=== PATIENT | female | born 1950 | race Caucasian/White ===

== ENCOUNTER 2024-07-30 06:36 | Emergency (ER) | payer MEDICARE, OTHER, SELFPAY ==
[2024-07-30 06:37] VITALS: BP 147/74
--- NOTE | 2024-07-30 07:08 | ED.GENMED ---
History of Present Illness
General
Chief Complaint: Dizziness
Time Seen by Provider: 07/30/24 06:55
History of Present Illness
History of Present Illness:
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 Patient reports she woke up this morning and was in her usual state of health. While she was watching TV, started to feel dizzy and
off-balance. Dizziness is described as spinning sensation. Also notes a headache. Denies fall or trauma. Denies ever having the symptoms in the past. Denies weakness or numbness to her extremities. Denies fever or systemic symptoms. Denies
fever or systemic symptoms. Does report history of vertigo several years ago. Denies additional medical complaints
Past History
Past History
ED Past Medical History: Other (Scleroderma, crest syndrome, anemia, restrictive lung disease)
ED Past Surgical History: Appendectomy, and Gynecological
Social History
Tobacco: Non-smoker
Alcohol: None
Drug: None
Personal: Other
Living: with family
Employment: Other
Family History
Family History: Other
Phy Exam
Physical Exam
Physical Exam:
General: Well-appearing, no clinical signs of dehydration, nontoxic and in no acute distress
HEENT: protecting airway
Neck: appears supple
CV: Normal heart rate, regular rhythm, no evidence of cyanosis
Resp: No accessory muscle use, no increased work of breathing, lungs clear to auscultation bilaterally
Abd: Soft and non-distended, no tenderness to palpation
Extremities: No deformities, no swelling, no erythema, pulses and sensation intact
Neuro: alert, no focal neurologic deficit
: deferred
Rectal: deferred
Psych: Normal affect
Skin: Intact
Course
Orders/Labs/Results
Orders:
Orders
07/30/24 07:03
CT Head W/o Iv Contrast Urgent
Comment:
Reason For Exam: dizziness
0.9% Sodium Chloride 1000 ml [Nss] 1,000 ml IV BOLUS
Meclizine [Antivert] 25 mg PO NOW STA
07/30/24 07:05
Electrocardiogram (*1) Urgent
Reason for Study: Vertigo / Dizzy
EKG- Treatment ONCE
07/30/24 07:30
Complete Blood Count/With Diff Urgent
Comprehensive Metabolic Panel Urgent
07/30/24 08:25
Ketorolac [Toradol] 15 mg IV NOW STA
Abnormal Lab Results
07/30/24
07:30
Absolute Lymphs (auto) 0.6 L 10^3/uL
(1.2-3.4)
Immature Gran % 0.6 H %
(0-0.5)
Neutrophils % 77.8 H %
(42.2-75.2)
Lymphocytes % 11.9 L %
(20.5-51.1)
Glucose 108 H mg/dl
(70-99)
07/30/24 07:30
07/30/24 07:30
Vital Signs
Initial and Last Documented VS:
Initial Vital Signs
Temp Pulse Resp BP Pulse Ox
97.8 F 67 18 147/74 98
07/30/24 06:37 07/30/24 06:37 07/30/24 06:37 07/30/24 06:37 07/30/24 06:37
Last Documented Vital Signs
Temp Pulse Resp BP Pulse Ox
97.8 F 84 11 167/76 98
07/30/24 06:37 07/30/24 09:00 07/30/24 09:00 07/30/24 08:11 07/30/24 09:00
MDM/Problems Addressed
MDM/Problems Addressed:
73-year-old female with history of CREST syndrome presenting for dizziness, headache, feeling off balance. Vital signs on arrival are normal.
On exam, patient is well-appearing, no acute distress or discomfort. Benign cardiac and pulmonary exam. On neurologic exam, no focal neurologic deficits. Symptoms appear more consistent with BPPV. Patient does report symptoms are worse when she
leans forward and when she looks up and down. Given acute onset of symptoms and patient's age, will obtain CT brain imaging. Patient otherwise afebrile, nontoxic, lower suspicion for infectious pathology. Patient denies any chest pain. Will
screen with EKG. Will administer IV fluids in the setting of volume depletion/mild dehydration. Will check electrolyte panel to ensure no electrolyte derangements. Will continue to closely monitor
08:30 -patient's labs are unremarkable. CT brain without acute intracranial abnormality. Patient reports mild improvement of her headache, was able to walk to the bathroom. Will administer Toradol for residual headache
09:45- Patient reports she is feeling much better. At this time feel that she is stable for discharge, continue to suspect vertiginous component to symptoms. Will prescribe meclizine. Advised outpatient follow-up, and patient notes that she does
have an upcoming appointment with her doctor. Return precautions discussed and patient verbalized understanding
*Critical Care Note
Total Time (30-74mins, 75-104mins- exclusive of procedures): Not Applicable
ED Attending Note
-
Portions of this chart may have been created with voice recognition software.� Occasional wrong word or��sound alike� substitutions may have occurred due to the inherent limitations of voice recognition software.
Discharge Plan
Departure
Prescriptions:
No Action
pilocarpine HCl 5 MG tablet
5 mg PO DAILY
omeprazole 20 MG capsule,delayed release(DR/EC)
20 mg PO DAILY
aspirin 81 MG tablet,chewable
81 mg PO DAILY
hydroxychloroquine 200 MG tablet
200 mg PO DAILY
duloxetine 60 MG capsule,delayed release(DR/EC)
60 mg PO DAILY
amlodipine [Norvasc] 5 mg Tablet
5 mg PO DAILY
mycophenolate mofetil 500 mg tablet
1,000 mg PO BID
benzonatate 100 mg Capsule
100 mg PO TID PRN (Reason: Cough)
ferrous sulfate 325 mg (65 mg iron) Tablet
325 mg PO DAILY
folic acid 1 mg Tablet
1 mg PO DAILY
pravastatin 20 mg Tablet
20 mg PO DAILY
cholecalciferol (vitamin D3) [Vitamin D3] 125 mcg (5,000 unit) Tablet
125 mcg PO DAILY
Benlysta 120 mg Recon Soln
120 mg IV Q4W
gabapentin 100 mg
1 tab PO PRN PRN (Reason: neuropathy)
Refresh Dry Eye Therapy
1 unit BOTH EYES DAILY PRN (Reason: Dry Eyes)
Referrals:
Marisela Watt MD [Family Provider] -
Interventions
Interventions:
*Risk Screen - Suicide Last Done: 07/30/24 06:37
*General Assessment Last Done: 07/30/24 06:37
*Neglect/Abuse Screening Last Done: 07/30/24 06:37
ED- Fall Risk Assessment Last Done: 07/30/24 06:46
*ED COVID-19 Vaccine History Last Done: 07/30/24 06:47
ED- Neurological Assessment Last Done: 07/30/24 06:46
ED- Cardiac Assessment Last Done: 07/30/24 06:46
Discharge Date and Time
Print Language: SWAZI
[2024-07-30 07:20] VITALS: BP 151/66; BMI 24.2
[2024-07-30] MEDS: ANTIVERT 25 MG PO (07:29)
[2024-07-30] MEDS: NSS 1000 IV (07:29)
[2024-07-30 07:54] LABS: % Basophils 1.1 % (0-2); % Eosinophils 2.4 % (0-6); % Immature Granulocytes 0.6 % (0-0.5); % Lymphocytes 11.9 % (20.5-51.1); % Monocytes 6.2 % (1.7-9.3); % Neutrophils 77.8 % (42.2-75.2); Absolute Basophils 0.1 10^3/uL (0-0.2); Absolute Eosinophils 0.1 10^3/uL (0-0.7); Absolute Lymphocytes 0.6 10^3/uL (1.2-3.4); Absolute Monocytes 0.3 10^3/uL (0.1-0.6); Absolute Neutrophils 4.1 10^3/uL (1.4-6.5); Hematocrit 37.5 % (37.0-47.0); Hemoglobin 12.6 g/dL (12.0-16.0); Mean Corp Hgb Conc. 33.6 g/dL (33.0-37.0); Mean Corpuscular Hgb 29.4 pg (27.0-31.0); Mean Corpuscular Volume 87.6 fL (81.0-99.0); Mean Platelet Volume 9.9 fL (7.4-10.4); Nucleated Red Blood Cells % 0 %; Platelet Count 224 10^3/uL (130-400); Red Blood Cell Count 4.28 10^6/uL (4.20-5.40); Red Cell Dist. Width 12.9 % (11.5-14.5); White Blood Cell Count 5.3 10^3/uL (4.8-10.8)
[2024-07-30 07:56] LABS: ALT (SGPT) 21 U/L (0-35); AST (SGOT) 31 U/L (14-36); Albumin 4.2 g/dl (3.5-5.0); Alkaline Phosphatase 66 U/L (38-126); Blood Urea Nitrogen 11 mg/dl (7-17); Calcium 9.6 mg/dl (8.4-10.2); Carbon Dioxide 27 mmol/L (22-30); Chloride 104 mmol/L (98-107); Estimated Creatinine Clearance 56 ml/min; Glucose 108 mg/dl (70-99); Potassium 4.4 mmol/L (3.5-5.1); Sodium 139 mmol/L (135-145); Total Bilirubin 0.5 mg/dl (0.2-1.3); Total Protein 6.4 g/dl (6.3-8.2); eGFR > 60.00
[2024-07-30 08:11] VITALS: BP 167/76
[2024-07-30] MEDS: TORADOL 15 MG IV (08:33)
== END 2024-07-30 10:04 | disposition home or self-care (01) ==
LOC: EMR 06:36
PROVIDERS: EMERGENCY PHYSICIAN Student in an Organized Health Care Education/Training Program; FAMILY PHYSICIAN Internal Medicine; OTHER PHYSICIAN Internal Medicine Cardiovascular Disease; OTHER PHYSICIAN Specialist; REFERRING PHYSICIAN Internal Medicine Rheumatology
DX: R42 Dizziness and giddiness (principal); R51.9 Headache, unspecified; E86.0 Dehydration; Z90.49 Acquired absence of other specified parts of digestive tract
CPT/HCPCS: 99284; 96374; 96361; 70450; 80053; 85025; 93005

== ENCOUNTER → 2024-09-23 06:35 | Day surgery (SDC) | payer MEDICARE, OTHER, SELFPAY | LOC: GI 06:35 | PROVIDERS: ATTENDING PHYSICIAN Specialist | DX: R13.10 Dysphagia, unspecified (principal); K22.2 Esophageal obstruction; K44.9 Diaphragmatic hernia without obstruction or gangrene; K31.7 Polyp of stomach and duodenum; K22.89 Other specified disease of esophagus | CPT/HCPCS: 43249; 43239; 88305 ==

== ENCOUNTER → 2024-10-14 08:15 | Outpatient (REF) | payer MEDICARE, OTHER, SELFPAY | LOC: RCS 08:15 | PROVIDERS: ATTENDING PHYSICIAN Internal Medicine Cardiovascular Disease; FAMILY PHYSICIAN Internal Medicine | DX: R42 Dizziness and giddiness (principal); M34.1 CR(E)ST syndrome | CPT/HCPCS: 93306; 93356 ==